=== PATIENT | female | born 1985 | race American Indian/Alaskan Native ===

== ENCOUNTER 2018-05-18 11:33 | Emergency (ER) | payer OTHER ==
[2018-05-18] MEDS ORDERED: Sodium Chloride 0.9% 1,000 ML IV STA (12:47)
[2018-05-18 13:07] LABS: BARBITURATES, UR NEGATIVE (NEGATIVE); BENZODIAZEPINES, UR NEGATIVE (NEGATIVE); OPIATES, UR NEGATIVE (NEGATIVE); PHENCYCLIDINE, UR NEGATIVE (NEGATIVE)
[2018-05-18] MEDS ORDERED: Sodium Chloride 0.9% 250 ML IV ONE (13:07)
[2018-05-18 13:10] LABS: BASO # 0.1 K/uL (0.0-0.2); BASO % 0.7 % (0.0-2.0); EOS # 0.1 K/uL (0.0-0.7); EOS % 0.9 % (0.0-4.0); LYMPH % 22.2 % (20.0-40.0); MEAN CELL VOLUME 85.7 fL (81.0-99.0); MEAN CORPUSCULAR HEMOGLOBIN 29.1 pg (27.0-31.0); MEAN CORPUSCULAR HGB CONC 33.9 g/dL (33.0-37.0); MEAN PLATELET VOLUME 8.6 fL (7.2-11.7); MONO # 0.8 K/uL (0.0-0.8); MONO % 8.6 % (0.0-10.0); NEUT % 67.6 % (50.0-75.0); RBC 4.48 Mil/uL (3.80-5.20); RED CELL DISTRIBUTION WIDTH 14.5 % (11.5-14.5); WHITE BLOOD COUNT 8.8 K/uL (4.8-10.8)
--- NOTE | 2018-05-18 13:12 | C.PDOC ---
History Of Present Illness 32 year old female presents to the ED complaining of intermittent palpitations for one day. Reports she gets a "fluttering feeling" whenever she has the palpitations. Admits to alcohol intake last night. Denies any diaphoresis, dyspn ea, chest pain, shortness of breath, nausea, vomiting, chills, fever, diarrhea, or any other symptoms. States she was seen by PMD for same symptoms before but nothing was done. Time Seen by Provider: 05/18/18 11:46 Chief Complaint (Nursing): Palpitations History Per: Patient History/Exam Limitations: no limitations Onset/Duration Of Symptoms: Days (1) Current Symptoms Are (Timing): Still Present Past Medical History Reviewed: Historical Data, Nursing Documentation, Vital Signs Vital Signs: Last Vital Signs Temp 98.2 F 05/18/18 12:02 Pulse 80 05/18/18 12:02 Resp 18 05/18/18 12:02 BP 106/70 05/18/18 12:02 Pulse Ox 96 05/18/18 12:02 - Medical History PMH: Anxiety Surgical History: No Surg Hx Family History: States: No Known Family Hx - Social History Hx Alcohol Use: Yes Hx Substance Use: (?) - Immunization History Hx Tetanus Toxoid Vaccination: No Hx Influenza Vaccination: No Hx Pneumococcal Vaccination: No Review Of Systems Except As Marked, All Systems Reviewed And Found Negative. Constitutional: Negative for: Fever, Chills Cardiovascular: Positive for: Palpitations. Negative for: Chest Pain Respiratory: Negative for: Shortness of Breath, SOB with Excertion Gastrointestinal: Negative for: Nausea, Vomiting, Diarrhea Physical Exam - Physical Exam Appears: Non-toxic, No Acute Distress Skin: Warm, Dry, No Rash Head: Normacephalic Eye(s): bilateral: Normal Inspection Nose: Normal Oral Mucosa: Moist Neck: Supple Chest: Symmetrical Cardiovascular: Rhythm Regular Respiratory: Normal Breath Sounds, No Rales, No Rhonchi, No Wheezing Neurological/Psych: Oriented x3, Normal Speech Gait: Steady ED Course And Treatment - Laboratory Results Result Diagrams: 05/18/18 13:03 05/18/18 13:03 Lab Results: Urine HCG, Qual Negative (NEGATIVE) 05/18/18 12:40 Urine HCG, Qual Negative (NEGATIVE) 05/18/18 12:40 ECG: Interpreted By Me, Viewed By Me ECG Rhythm: Sinus Rhythm ECG Interpretation: No Acute Changes Rate From EC O2 Sat by Pulse Oximetry: 96 (RA) Pulse Ox Interpretation: Normal - CT Scan/US CTA chest PE protocol Other Rad Studies (CT/US): Read By Radiologist, Radiology Report Reviewed CT/US Interpretation: Accession No. : [id number]. Patient Name / ID : CANDI GONZALEZ / [id number]. Exam Date : 05/18/2018 17:19:32 ( Approved ). Study Comment : Sex / Age : F / 32Y. Creator : Francy Ivey RT. Dictator : Tyler Juarez MD. Clinical Applications Specialist : Tractor Operator Battery : Tyler Juarez MD. Approver2 : Report Date : 05/18/2018 17:29:26. My Comment : . Date of service: 05/18/2018. PROCEDURE: CT Chest with contrast (Pulmonary Angiogram). HISTORY: palpitation, chest discomfort, lightheaded. COMPARISON: None available. TECHNIQUE: Axial computed tomography images were obtained of the chest in the pulmonary arterial phase of enhancement. Coronal and sagittal reformatted images were created and reviewed. Intravenous contrast dose: Radiation dose: Total exam DLP = 577.01 mGy-cm. This CT exam was performed using one or more of the following dose reduction techniques: Automated exposure control, adjustment of the mA and/or kV according to patient size, and/or use of iterative reconstruction technique. FINDINGS: PULMONARY ARTERIES: Unremarkable. No pulmonary embolism. AORTA: No acute findings. No thoracic aortic aneurysm. No aortic atherosclerotic calcification or mural plaque present. LUNGS: Unremarkable. No nodule, mass or pulmonary consolidation. PLEURAL SPACES: Unremarkable. No effusion or pneumothorax. HEART: Unremarkable. No cardiomegaly. No significant pericardial effusion. LYMPH NODES: No lymphadenopathy. BONES, CHEST WALL: Unremarkable. No fracture or destructive lesion. OTHER FINDINGS: Unremarkable. IMPRESSION: Unremarkable CT pulmonary angiogram. No pulmonary embolus. Progress Note: EKG ordered and reviewed. Blood and urine collected and sent to the lab for analysis. Patient given IV fluids. CTA negative. Patient us stable for discharge. Disposition - Disposition Disposition: HOME/ ROUTINE Disposition Time: 18:16 Condition: STABLE Additional Instructions: Follow up with PMD and emergency department physician within 1-2 days. Return to ED if feel worse. Instructions: Palpitations (DC) Forms: [facility] (S[place]i), Work Excuse - Clinical Impression Clinical Impression: Palpitations - PA / AGRONOMY SPECIALIST / Resident Statement MD/DO has reviewed & agrees with the documentation as recorded. - Scribe Statement The provider has reviewed the documentation as recorded by the Scribe Savita Pinto All medical record entries made by the Scribe were at my direction and person ally dictated by me. I have reviewed the chart and agree that the record accurately reflects my personal performance of the history, physical exam, medical decision making, and the department course for this patient. I have also personally directed, reviewed, and agree with the discharge instructions and disposition.
[2018-05-18 13:23] LABS: ALB/GLOB RATIO 1.5 (1.0-2.1); ALBUMIN 4.5 g/dL (3.5-5.0); ALT/SGPT 24 U/L (9-52); AST/SGOT 29 U/L (14-36); BLOOD UREA NITROGEN 11 mg/dL (7-17); CALCIUM 9.2 mg/dl (8.6-10.4); GFR NON-AFRICAN AMERICAN > 60
[2018-05-18 13:28] LABS: INR 1.1; PROTHROMBIN TIME 12.4 SECONDS (9.7-12.2)
[2018-05-18 13:32] LABS: CK-MB 0.95 ng/mL (0.0-3.38)
[2018-05-18] MEDS ORDERED: Iodixanol 320 MG/ML 100 ML BOTTLE IV ONE (15:50)
--- NOTE | 2018-05-18 17:46 | CT ---
Date of service: 05/18/2018 PROCEDURE: CT Chest with contrast (Pulmonary Angiogram) HISTORY: palpitation, chest discomfort, lightheaded COMPARISON: None available. TECHNIQUE: Axial computed tomography images were obtained of the chest in the pulmonary arterial phase of enhancement. Coronal and sagittal reformatted images were created and reviewed. Intravenous contrast dose: Radiation dose: Total exam DLP = 577.01 mGy-cm. This CT exam was performed using one or more of the following dose reduction techniques: Automated exposure control, adjustment of the mA and/or kV according to patient size, and/or use of iterative reconstruction technique. FINDINGS: PULMONARY ARTERIES: Unremarkable. No pulmonary embolism. AORTA: No acute findings. No thoracic aortic aneurysm. No aortic atherosclerotic calcification or mural plaque present. LUNGS: Unremarkable. No nodule, mass or pulmonary consolidation. PLEURAL SPACES: Unremarkable. No effusion or pneumothorax. HEART: Unremarkable. No cardiomegaly. No significant pericardial effusion. LYMPH NODES: No lymphadenopathy. BONES, CHEST WALL: Unremarkable. No fracture or destructive lesion OTHER FINDINGS: Unremarkable. IMPRESSION: Unremarkable CT pulmonary angiogram. No pulmonary embolus.
[2018-05-18 18:15] VITALS: BP 109/81; PULSE 55; RESP 18
[2018-05-18 18:20] VITALS: O2SAT 96
[2018-05-18 18:30] VITALS: TEMP 99
--- NOTE | 2018-05-20 10:00 | CARD ---
APPROVED REPORT Date of service: 05/18/2018 EKG Measurement Heart [id number] <Conclusion> Normal sinus rhythm Normal ECG
== END 2018-05-18 18:46 | disposition home or self-care (01) ==
LOC: C.ER 11:33
DX: R00.2 Palpitations (principal)
CPT/HCPCS: 71275; 80053; 82550; 82553; 84703; 85025; 85378; 85610; 85730; 93005; 96360; 99285; G0480; J7030; Q9967